=== PATIENT | female | born 1970 | race Caucasian/White ===

== ENCOUNTER → 2016-11-30 | Outpatient (CLI) | payer BC ==
[~2016-11-30] MED LIST: FENTANYL PF 100 MCG/2ML ONE; GADOBUTROL 7.5 MMOL/7.5 ML PFS ONE; MIDAZOLAM 1 MG/ML, 5ML ONE
== END | disposition home or self-care (01) ==
LOC: RAD 09:02
PROVIDERS: ATTEND Nurse Practitioner Family
DX: R42 Dizziness and giddiness (principal); R41.3 Other amnesia; R51 Headache; R53.1 Weakness
CPT/HCPCS: 70553; 99156; 99157; A9585; J2250; J3010

== ENCOUNTER → 2020-02-27 | Outpatient (CLI) | payer BC | END | disposition home or self-care (01) | LOC: CFH 16:02 | PROVIDERS: ATTEND Obstetrics & Gynecology | DX: Z12.31 Encounter for screening mammogram for malignant neoplasm of breast (principal) | CPT/HCPCS: 77063; 77067 ==